=== PATIENT | female | born 1960 | race Caucasian/White ===

== ENCOUNTER 2024-06-09 13:51 | Outpatient (AMB) | payer BC, SELFPAY ==
--- NOTE | 2024-06-09 14:03 | GSCOFFNT_ITS ---
[facility] Signs - [facility] 06/09/24 14:04 Height 1.63 m Height Method Stated Weight 81.391 kg Weight Measurement Method Standing Scale BMI 30.8 BP 131/84 H Blood Pressure Source Automatic Cuff Blood Pressure Location Left Upper Arm Position Sitting Respiration 19 Pulse 82 Pulse Source Monitor Temp 97.6 F Temp Source Temporal Artery Scan Pulse Oximetry (%) 97 Oxygen Delivery Method Room Air Med/Allergies Allergies & Medications Allergies venlafaxine [From Effexor] Adverse Reaction (Mild, Verified 06/09/24 14:04) GI upset Medication Reconciliation levothyroxine 137 mcg PO QDAY Thyroid #0 tabs 07/21/14 [History Confirmed 06/09/24] tramadol 50 mg tablet 50 mg PO Q8HR PRN Back Pain 07/30/18 [History Confirmed 06/09/24] linaclotide 145 mcg capsule (Linzess) 145 mcg PO QDAY Gastrointestinal Issues 05/16/20 [History Confirmed 06/09/24] multivitamin 1 tab PO DAILY 05/16/20 [History Confirmed 06/09/24] acetaminophen 500 mg capsule 500 mg PO Q6H PRN pain #30 caps 05/21/20 [Rx Confir med 06/09/24] amoxicillin 875 mg-potassium clavulanate 125 mg tablet (Augmentin) 1 tab PO BID #14 tabs 05/21/20 [Rx Confirmed 06/09/24] simethicone 80 mg chewable tablet 80 mg PO QID PRN Gas #10 tabs 05/21/20 [Rx Confirmed 06/09/24] MA Intake Visit Data Collection New Patient or Established: New Patient (never been to [facility]) Seen by Clinical Staff ONLY (RN/MA): No Reason for Visit:: REFERRAL RECTAL POLYPS Pain Present Currently: Yes Pain Location: Unable to identify Pain scale:: 3 (DISCOMFORT) Pickle Processor Required: No PCP or OBGYN visit in last 3 months: Yes Hx Now: No Do You Feel Safe at Home: Yes Authorities Contacted: N/A Smoking Status Smoking Status: Current every day smoker (10 cig/day) Cessation Counseling Provided: ALON was advised that quitting smoking is the single most important factor to protect the health of themselves and their family. Discussed the benefits of quitting smoking with patient. Encouraged patient to quit smoking and provided Cessation assistance materials and resources. Tobacco Use: Cigarette Years smoked: 17 Are you interested in quitting?: No Would you like additional Smoking Cessation Counseling?: No Immunization / Flu Flu Vaccine in the Last 12 Months: No Flu Vaccine Exclusion Criteria: Refused by Patient Past Medical History Past Medical History CARDIAC: Negative Congestive Heart Failure RESPIRATORY: Negative Chronic Obstructive Pulmonary Disease (COPD) GASTROINTESTINAL: Positive Gastrointestinal Disorders (recurrent diverticulitis, chronic constipation,gastric bypass 2001) GENITOURINARY: Negative Renal Disease MUSCULOSKELETAL: Positive Arthritis (osteoarthritis) ENDOCRINE: Positive Hypothyroidism; Negative Diabetes Mellitus Type 1 or Diabetes Mellitus Type 2 PSYCHO/SOCIAL: Positive Depression and Anxiety Family History FAMILY HISTORY: Positive Family Cancer (mother with uterine ca;RA;DM 2, CVA,carotid stenosis, CAD) Social History SMOKING STATUS: Smoking status: Current every day smoker (10 cig/day) SECOND HAND EXPOSURE: second hand exposure: Yes ALCOHOL: Alcohol Intake: Never HOUSING: Housing: Apartment LIVES WITH: Lives With: Spouse HPI HPI Narrative 64F referred for perianal discomfort. Pt reports she has perianal pain and itching for months, she has tried OTC creams and felt minimal relief. Pt states at baseline her BMs vary from constipation to diarrhea and in terms of frequency since she had sigmoidectomy in 2020 for diverticulitis; she drinks plenty of water and takes fiber to help with regularity. Pt underwent colonoscopy in 2017 and is unsure of findings but underwent barium enema in 2020 after sigmoidectomy and before ileostomy reversal which showed diverticula but was otherwise negative She denies any recent changes in bowel habits, anorexia and unintentional weight loss PMH: Arthritis, hypothyroidism, back pain PSHx: Gastric bypass, sigmoidectomy with diverting ileostomy in 2020, ileostomy reversal 2020 Meds: ibuprofen (pt is aware it is advised against in setting of bypass), gabapentin, levothyroxine, tramadol Allergies: Venlafaxine Family hx: no known malignancy Social hx: smokes 1/2-1 PPD for 15 years ROS Review of Systems Systems Reviewed: All systems reviewed, normal except as documented Objective/Exam General General Appearance: alert, cooperative and well groomed Resp Respiratory exam: Absent respiratory distress Rectal Rectal exam: Present other (anal fissure at anterior midline, no external hemorrhoids) Assessment & Plan Diagnosis / Problem List (1) Anal fissure: Status: Acute Assessment & Plan: 64F with history of sigmoidectomy for diverticulitis, gastric bypass presenting with perianal discomfort and anal fissure on exam. I will rx a compound cream and for her itching recommended Sarna lotion (emphasizing not to place it inside the rectum). 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) Patient Portal Questionaires Social History Living Situation History Housing: Apartment Housing Other:: lives with spouse Panda Goncalves Tobacco History Smoking Status: Current every day smoker (10 cig/day) Second Hand Smoke Exposure: Yes Alcohol History Alcohol Intake: Never Domestic Abuse History Do You Feel Safe at Home: Yes Review of Systems Report any current symptoms Only answer those that you have currently: Past Medical History Past Medical History Have you ever been diagnosed with any of the following: Cardiology Problems Congestive Heart Failure: No Respiratory Problems Chronic Obstructive Pulmonary Disease (COPD): No Genital/Urinary Problems Renal Disease: No Musculoskeletal Problems Arthritis: Yes (osteoarthritis) Endocrine Problems Diabetes Mellitus Type 1: No Diabetes Mellitus Type 2: No Hypothyroidism: Yes Psychologic Problems Depression: Yes Anxiety: Yes
[2024-06-09 14:04] VITALS: BP 131/84; PULSE 82; RESP 19; TEMP 36.4; O2SAT 97; BMI 30.8
== END 2024-06-09 14:52 | disposition home or self-care (01) ==
PROVIDERS: PCP Specialist; Referring Provider Specialist; Supervising Provider Surgery; Visit Provider Surgery
DX: K60.2 Anal fissure, unspecified (principal); Z98.84 Bariatric surgery status
CPT/HCPCS: 99203; G0463

== ENCOUNTER → 2024-07-06 | Outpatient (CLI) | payer BC, SELFPAY ==
[2024-07-06 12:53] LABS: Influenza A Ag Negative; Influenza B Ag Negative
== END | disposition home or self-care (01) ==
LOC: SLDO 11:02
PROVIDERS: Referring Provider Specialist; Visit Provider Specialist
DX: R05.9 Cough, unspecified (principal); R50.9 Fever, unspecified
CPT/HCPCS: 87502

== ENCOUNTER 2024-07-25 10:11 | Outpatient (AMB) | payer BC, SELFPAY ==
[2024-07-25 10:26] VITALS: BP 117/77; PULSE 99; RESP 19; TEMP 36.8; O2SAT 96; BMI 30.9
--- NOTE | 2024-07-25 10:26 | GSCOFFNT_ITS ---
Vital Signs - [facility] 07/25/24 10:26 Height 1.63 m Height Method Stated Weight 82.327 kg Weight Measurement Method Standing Scale BMI 30.9 BP 117/77 Blood Pressure Source Automatic Cuff Blood Pressure Location Left Upper Arm Position Sitting Respiration 19 Pulse 99 Pulse Source Monitor Temp 98.3 F Temp Source Temporal Artery Scan Pulse Oximetry (%) 96 Oxygen Delivery Method Room Air Med/Allergies Allergies & Medications Allergies venlafaxine (From Effexor) Adverse Reaction (Mild, Verified 07/25/24 10:27) GI upset Medication Reconciliation levothyroxine 137 mcg PO QDAY Thyroid #0 tabs 07/21/14 [History Confirmed 07/25/24] tramadol 50 mg tablet 50 mg PO Q8HR PRN Back Pain 07/30/18 [History Confirmed 07/25/24] linaclotide 145 mcg capsule (Linzess) 145 mcg PO QDAY Gastrointestinal Issues 05/16/20 [History Confirmed 07/25/24] multivitamin 1 tab PO DAILY 05/16/20 [History Confirmed 07/25/24] acetaminophen 500 mg capsule 500 mg PO Q6H PRN pain #30 caps 05/21/20 [Rx Confirmed 07/25/24] amoxicillin 875 mg-potassium clavulanate 125 mg tablet (Augmentin) 1 tab PO BID #14 tabs 05/21/20 [Rx Confirmed 07/25/24] simethicone 80 mg chewable tablet 80 mg PO QID PRN Gas #10 tabs 05/21/20 [Rx Confirmed 07/25/24] MA Intake Visit Data Collection New Patient or Established: Established Patient (seen at [facility] within 3 years) Seen by Clinical Staff ONLY (RN/MA): No Reason for Visit:: F/U RECTAL POLYPS Pain Present Currently: No PCP or OBGYN visit in last 3 months: Yes Hx Now: No Do You Feel Safe at Home: Yes Authorities Contacted: N/A Smoking Status Smoking Status: Current every day smoker (10 cig/day) Cessation Counseling Provided: ALON was advised that quitting smoking is the single most important factor to protect the health of themselves and their family. Discussed the benefits of quitting smoking with patient. Encouraged patient to quit smoking and provided Cessation assistance materials and resources. Tobacco Use: Cigarette Years smoked: 17 Are you interested in quitting?: No Immunization / Flu Flu Vaccine in the Last 12 Months: No Flu Vaccine Exclusion Criteria: No Exclusion Criteria Past Medical History Past Medical History CARDIAC: Negative Congestive Heart Failure RESPIRATORY: Negative Chronic Obstructive Pulmonary Disease (COPD) GASTROINTESTINAL: Positive Gastrointestinal Disorders (recurrent diverticulitis, chronic constipation,gastric bypass 2001) GENITOURINARY: Negative Renal Disease MUSCULOSKELETAL: Positive Arthritis (osteoarthritis) ENDOCRINE: Positive Hypothyroidism; Negative Diabetes Mellitus Type 1 or Diabetes Mellitus Type 2 PSYCHO/SOCIAL: Positive Depression and Anxiety Family History FAMILY HISTORY: Positive Family Cancer (mother with uterine ca;RA;DM 2, CVA,carotid stenosis, CAD) Social History SMOKING STATUS: Smoking status: Current every day smoker (10 cig/day) SECOND HAND EXPOSURE: second hand exposure: Yes ALCOHOL: Alcohol Intake: Never HOUSING: Housing: Apartment LIVES WITH: Lives With: Spouse HPI HPI Narrative 64F with history of sigmoidectomy for diverticulitis, gastric bypass here for follow up of perianal fissure. At last visit I prescribed a compound cream and pt states it has helped her pain; she still sometimes has perianal itching which she states tends to happen when she needs to have a BM. She states she is having some constipation but is taking senna and miralax which help. Pt states she has not been drinking much water as of late as she had pneumonia for two weeks and drinking cold water caused her to cough. She also notes she recently began having upper abdominal pain, sometimes related to eating which is mainly in the epigastric but sometimes radiates to the back. Pt underwent US in the past and was told she had sludge in the gallbladder ROS Review of Systems Systems Reviewed: All systems reviewed, normal except as documented Objective/Exam General General Appearance: alert, cooperative and well groomed Resp Respiratory exam: Absent respiratory distress Assessment & Plan Diagnosis / Problem List (1) Epigastric pain: Status: Acute Assessment & Plan: 64F with history of sigmoidectomy for diverticulitis, gastric bypass now with episodic epigastric pain. I will order an US to eval for gallstones (2) Anal fissure: Status: Acute Assessment & Plan: 64F with history of sigmoidectomy for diverticulitis, gastric bypass here for follow up of anal fissure, with symptomatic improvement with compound cream. I encouraged her to increase water and fiber intake Orders: Orders US gall bladder 1 Week R10.13 - Epigastric pain Office Procedures GNS Level of Care Nursing/Assessment Patient Status: Established Patient Nursing Assessment/Reassesment: Medication Reconciliation, Update PMH in EMR and Vital Signs Coordination of Care: Complex Care and Chronic Disease 1-5, Consent,records obtained, informed consent, Education Simp Pt/Fam, Results/Orders obtained and Staff clarify orders Established Patient Charge Established Patient Point Assignment: 90 Established Patient Point Charge: EP Level 3 (80-115) Patient Portal Questionaires Social History Living Situation History Housing: Apartment Housing Other:: lives with spouse Panda Goncalves Tobacco History Smoking Status: Current every day smoker (10 cig/day) Second Hand Smoke Exposure: Yes Alcohol History Alcohol Intake: Never Domestic Abuse History Do You Feel Safe at Home: Yes Review of Systems Report any current symptoms Only answer those that you have currently: Past Medical History Past Medical History Have you ever been diagnosed with any of the following: Cardiology Problems Congestive Heart Failure: No Respiratory Problems Chronic Obstructive Pulmonary Disease (COPD): No Genital/Urinary Problems Renal Disease: No Musculoskeletal Problems Arthritis: Yes (osteoarthritis) Endocrine Problems Diabetes Mellitus Type 1: No Diabetes Mellitus Type 2: No Hypothyroidism: Yes Psychologic Problems Depression: Yes Anxiety: Yes
== END 2024-07-25 11:02 | disposition home or self-care (01) ==
PROVIDERS: PCP Specialist; Referring Provider Specialist; Supervising Provider Surgery; Visit Provider Surgery
DX: R10.13 Epigastric pain (principal); K60.2 Anal fissure, unspecified; Z98.84 Bariatric surgery status
CPT/HCPCS: 99213; G0463

== ENCOUNTER → 2024-09-01 | Outpatient (CLI) | payer BC, SELFPAY ==
--- NOTE | 2024-09-01 09:30 | XR_ITS ---
Examination: Abdomen sonogram, Limited Date and time of exam: September 01, 2024 0946 hours INDICATIONS: Epigastric pain beginning one week ago Technique: Real-time bowden scale transabdominal sonographic images of the upper abdomen obtained. Findings: Normal gallbladder Common bile duct enlarged 0.9 cm no stones Pancreatic head 2.7 cm Liver 16.1 cm fatty infiltration Normal hepatopedal portal venous flow Patent IVC IMPRESSION: Abnormally enlarged common bile duct 0.9 cm, consider MRCP follow-up
== END | disposition home or self-care (01) ==
PROVIDERS: PCP Specialist; Referring Provider Surgery; Visit Provider Surgery
DX: K83.8 Other specified diseases of biliary tract (principal)
CPT/HCPCS: 76705

== ENCOUNTER → 2024-10-05 | Outpatient (CLI) | payer BC, SELFPAY ==
[2024-10-05 14:47] LABS: Misc Send Out* See Sep Rpt
== END | disposition home or self-care (01) ==
LOC: SLDO 14:33
PROVIDERS: Referring Provider Specialist; Visit Provider Specialist
DX: Z79.891 Long term (current) use of opiate analgesic (principal)
CPT/HCPCS: 80373; G0480

== ENCOUNTER → 2024-12-21 | Outpatient (CLI) | payer BC, SELFPAY ==
[2024-12-21 08:25] LABS: Basophils # (Auto) 0.1 Thou/mm3 (0.0-0.2); Basophils % (Auto) 1 % (0-2.5); Eosinophils # (Auto) 0.2 Thou/mm3 (0.0-0.5); Eosinophils % (Auto) 3 % (0-10); Hematocrit 38.2 % (36.0-46.0); Hemoglobin 12.9 g/dL (12.0-16.0); Immature Granulocytes Auto 0.02 Thou/mm3 (0.00-0.00); Lymphocytes # (Auto) 2.1 Thou/mm3 (1.0-4.8); Lymphocytes % (Auto) 30 % (10-50); Mean Corpuscular HGB Conc 33.8 g/dl (31.0-37.0); Mean Corpuscular Hemoglobin 30.9 pg (25.0-35.0); Mean Corpuscular Volume 92 fL (80-100); Monocytes # (Auto) 0.5 Thou/mm3 (0.0-0.8); Monocytes % (Auto) 7 % (0-12); Neutrophils # (Auto) 4.3 Thou/mm3 (1.8-7.7); Neutrophils % (Auto) 59 % (37-80); Nucleated Red Blood Cell # 0.00 Thou/mm3 (0.00-0.00); Nucleated Red Blood Cell % 0 /100 WBC (0); Platelet Count 269 Thou/mm3 (140-440); RDW Standard Deviation 42.1 fL (36.4-46.3); Red Blood Count 4.17 Miln/mm3 (4.00-5.20); White Blood Count 7.2 Thou/mm3 (3.6-11.0)
[2024-12-21 08:36] LABS: Parathyroid Hormone Intact 35.0 pg/ml (18.5-88.0)
[2024-12-21 08:52] LABS: Folate > 24.00 ng/mL (>5.38); Vitamin B12 535 pg/mL (211-911); Vitamin D 25 Hydroxy Total 33.0 ng/mL (7.3-40.2)
[2024-12-21 08:57] LABS: Alanine Aminotransferase 21 U/L (10-49); Albumin, Serum 4.5 gm/dL (3.4-4.8); Albumin/Globulin Ratio 1.9 (1.2-2.2); Alkaline Phosphatase 117 U/L (46-116); Anion Gap 10 (7-16); Aspartate Amino Transferase 30 U/L (0-34); BUN/Creatinine Ratio 17 Ratio (12-20); Bilirubin,Total 0.4 mg/dL (0.3-1.2); Blood Urea Nitrogen 15 mg/dL (9-23); Calcium 9.5 mg/dL (8.3-10.6); Calcium (Corrected) 9.5 mg/dL (8.5-10.1); Carbon Dioxide 25.5 mMol/L (20.0-31.0); Cardiac Risk Estimate 3.7 RATIO (3.7-5.6); Chloride 100 mMol/L (98-107); Cholesterol 219 mg/dL (132-200); Creatinine (Component) 0.9 mg/dL (0.6-1.3); Free T4 (Free Thyroxine) 1.38 ng/dL (0.89-1.76); Globulin 2.4 gm/dL (2.3-3.5); Glucose 94 mg/dL (74-106); HDL Cholesterol 59 mg/dL (40-60); LDL Cholesterol,Calculated 126 mg/dL (0-130); Osmolality,Calculated 270 (275-295); Potassium 4.8 mMol/L (3.4-5.1); Sodium 135 mMol/L (136-145); Thyroid Stimulating Hormone 6.24 uIU/mL (0.55-4.78); Total Protein 6.9 gm/dL (5.7-8.2); Triglycerides 170 mg/dL (30-150); eGFR > 60 See Note
[2024-12-21 11:12] LABS: Ferritin 19 ng/mL (7.3-270.7); Iron 89 mcg/dL (50-170); Percent Iron Saturation 23 % (20-55); Total Iron Binding Capacity 373 mcg/dL (250-425); Unsaturated Iron Binding 284 (225-295)
== END | disposition home or self-care (01) ==
PROVIDERS: PCP Specialist; Referring Provider Specialist; Visit Provider Specialist
DX: E03.8 Other specified hypothyroidism (principal); Z98.84 Bariatric surgery status
CPT/HCPCS: 36415; 80053; 80061; 82306; 82607; 82728; 82746; 83540; 83550; 83970; 84439; 84443; 85025

== ENCOUNTER → 2025-05-30 | Outpatient (CLI) | payer BC, SELFPAY ==
[2025-05-30 09:57] LABS: Free T3 3.6 pg/mL (2.3-4.2); Free T4 (Free Thyroxine) 2.37 ng/dL (0.89-1.76); Thyroid Stimulating Hormone 0.02 uIU/mL (0.55-4.78)
[2025-05-30 10:00] LABS: T4 (Thyroxine) 14.0 mcg/dL (4.5-10.9)
== END | disposition home or self-care (01) ==
LOC: COPL 08:49
PROVIDERS: PCP Specialist; Referring Provider Specialist; Visit Provider Specialist
DX: E03.8 Other specified hypothyroidism (principal)
CPT/HCPCS: 36415; 84436; 84439; 84443; 84481